=== PATIENT | female | born 1990 | race Caucasian/White ===

== ENCOUNTER 2017-09-26 09:48 | Emergency (ER) | payer MEDICAID ==
[~2017-09-26] VITALS: Ht 152.4 cm; Wt 70.0 kg
[2017-09-26 09:57] VITALS: BP 123/71; PULSE 85; RESP 18; TEMP 97.9; O2SAT 100
--- NOTE | 2017-09-26 10:11 | PD ---
HPI Chief Complaint: Syncope/Near-Syncope Time Seen by Provider: 09:58 Travel History International Travel<30 days: No Contact w/Intl Traveler<30days: No Traveled to known affect area: No History of Present Illness HPI 26-year-old female was brought in by EMS for syncope. Patient states that she did not eat any breakfast or drink fluid this morning. Patient states that she was outside and passed out completely. EMS was called. Patient was brought in for evaluation. Patient denies any headache. Patient denies any neck pain. Patient denies any chest pain or shortness of breath. Patient denies abdominal pain. Patient denies any nausea vomiting diarrhea. Patient denies any focal weakness or numbness of extremity. Patient states that she is not on any routine medication. Patient denies any chance of being . Patient denies any dysuria or frequency. Patient denies any vaginal discharge or bleeding. Patient denies any history of seizure. Patient states that she did not injure herself during the syncopal episode this morning. Patient denies any history of alcohol or drug abuse. PFSH Past Medical History Bipolar Disorder: Yes Diminished Hearing: No Psychiatric: Yes (MENTAL DISABILITY ) Immunizations Current: No Tetanus Vaccination: Unknown Influenza Vaccination: No ?: Not Past Surgical History Surgical History: No Previous Surgery Social History Alcohol Use: No Tobacco Use: No Substance Use: No Allergies-Medications (Allergen,Severity, Reaction): Coded Allergies: Penicillins (Verified Allergy, Unknown, RASHES, 09/26/17) Reported Meds & Prescriptions Reported Meds & Active Scripts Active No Active Prescriptions or Reported Medications Review of Systems General / Constitutional: No: Fever Eyes: No: Visual changes HENT: No: Headaches Cardiovascular: No: Chest Pain or Discomfort Respiratory: No: Shortness of Breath Gastrointestinal: No: Abdominal Pain Genitourinary: No: Dysuria Musculoskeletal: No: Pain Skin: No Rash Neurologic: Positive: Syncope, No: Weakness Psychiatric: No: Depression Endocrine: No: Polydipsia Hematologic/Lymphatic: No: Easy Bruising Physical Exam Narrative GENERAL: Well-nourished, well-developed patient. SKIN: Focused skin assessment warm/dry. HEAD: Normocephalic. EYES: No scleral icterus. No injection or drainage. Pupils 2 mm equal reactive. NECK: Supple, trachea midline. No JVD or lymphadenopathy. CARDIOVASCULAR: Regular rate and rhythm without murmurs, gallops, or rubs. RESPIRATORY: Breath sounds equal bilaterally. No accessory muscle use. GASTROINTESTINAL: Abdomen soft, non-tender, nondistended. MUSCULOSKELETAL: No cyanosis, or edema. BACK: Nontender without obvious deformity. No CVA tenderness. Neurologic exam: Patient's awake alert oriented 3. No obvious focal neurological deficit. Data Data Last Documented VS Vital Signs Date Time Temp Pulse Resp B/P (MAP) Pulse Ox O2 Delivery O2 Flow Rate FiO2 09/26/17 09:57 97.9 85 18 123/71 (88) 100 Orders Orders Electrocardiogram (09/26/17 09:59) Complete Blood Count With Diff (09/26/17 09:59) Basic Metabolic Panel (Bmp) (09/26/17 09:59) Urinalysis - C+S If Indicated (09/26/17 09:59) Thyroid Stimulating Hormone (09/26/17 09:59) Iv Access Insert/Monitor (09/26/17 09:59) Ecg Monitoring (09/26/17 09:59) Oximetry (09/26/17 09:59) Ed Urine Pregnancytest Poc (09/26/17 09:59) Labs Laboratory Tests Test 09/26/17 10:05 09/26/17 10:10 Urine Color YELLOW Urine Turbidity CLEAR Urine pH 6.5 Urine Specific Alexander 1.007 Urine Protein NEG mg/dL Urine Glucose (UA) NEG mg/dL Urine Ketones NEG mg/dL Urine Occult Blood NEG Urine Nitrite NEG Urine Bilirubin NEG Urine Urobilinogen LESS THAN 2.0 MG/DL Urine Leukocyte Esterase NEG Urine RBC LESS THAN 1 /hpf Urine WBC 1 /hpf Urine Bacteria RARE /hpf Microscopic Urinalysis Comment CULT NOT INDICATED White Blood Count 9.2 TH/MM3 Red Blood Count 4.27 MIL/MM3 Hemoglobin 12.4 GM/DL Hematocrit 37.7 % Mean Corpuscular Volume 88.2 FL Mean Corpuscular Hemoglobin 29.1 PG Mean Corpuscular Hemoglobin Concent 33.0 % Red Cell Distribution Width 15.2 % Platelet Count 280 TH/MM3 Mean Platelet Volume 10.7 FL Neutrophils (%) (Auto) 75.0 % Lymphocytes (%) (Auto) 16.5 % Monocytes (%) (Auto) 6.6 % Eosinophils (%) (Auto) 1.5 % Basophils (%) (Auto) 0.4 % Neutrophils # (Auto) 6.9 TH/MM3 Lymphocytes # (Auto) 1.5 TH/MM3 Monocytes # (Auto) 0.6 TH/MM3 Eosinophils # (Auto) 0.1 TH/MM3 Basophils # (Auto) 0.0 TH/MM3 CBC Comment DIFF FINAL Differential Comment Blood Urea Nitrogen 6 MG/DL Creatinine 0.64 MG/DL Random Glucose 91 MG/DL Calcium Level 8.8 MG/DL Sodium Level 141 MEQ/L Potassium Level 3.0 MEQ/L Chloride Level 105 MEQ/L Carbon Dioxide Level 26.2 MEQ/L Anion Gap 10 MEQ/L Estimat Glomerular Filtration Rate 110 ML/MIN Thyroid Stimulating Hormone 3rd Gen 0.143 uIU/ML MDM Medical Decision Making Medical Screen Exam Complete: Yes Emergency Medical Condition: Yes Interpretation(s) 11:47 AM. CBC within normal limit. BMP with potassium 3.0. TSH 0.143. UA is negative. Differential Diagnosis Differential diagnosis including vasovagal reaction, electrolyte imbalance, dehydration, arrhythmia, TIA, CVA Narrative Course 26-year-old female with syncope. Patient did not eat or drink anything this morning. Patient was outside when she passed out. Patient was given fluid and food. KCl 40 mEq by mouth given. Diagnosis Primary Impression: Syncope Qualified Codes: R55 - Syncope and collapse Additional Impression: Hypokalemia Patient Instructions: General Instructions Additional Instructions: Encourage by mouth fluids. Follow-up with personal physician. Take potassium as directed. Med/Other Pt SpecificInfo: Prescription(s) given Scripts Potassium Chloride ER (Potassium Chloride ER) 10 Meq Cap 10 MEQ PO DAILY for Electrolyte Replacement, #5 CAP 0 Refills Prov: Geo Rapp MD 09/26/17 Disposition: 01 DISCHARGE HOME Condition: Stable Geo Rapp MD Sep 26, 2017 10:10
[2017-09-26 11:12] LABS: AUTOMATED NEUTROPHIL # 6.9 TH/MM3 (1.8-7.7); BASOPHIL % 0.4 % (0.0-2.0); EOSINOPHIL # 0.1 TH/MM3 (0-0.4); EOSINOPHIL % 1.5 % (0.0-4.0); HEMATOCRIT 37.7 % (35.0-46.0); HEMO FLAGS DIFF FINAL; LYMPH % 16.5 % (9.0-44.0); LYMPHOCYTE # 1.5 TH/MM3 (1.0-4.8); MEAN CELL VOLUME 88.2 FL (80.0-100.0); MEAN CORPUSCULAR HEMOGLOBIN 29.1 PG (27.0-34.0); MONO % 6.6 % (0.0-8.0); PLATELET COUNT 280 TH/MM3 (150-450); RED BLOOD COUNT 4.27 MIL/MM3 (4.00-5.30); RED CELL DISTRIBUTION WIDTH 15.2 % (11.6-17.2); WHITE BLOOD COUNT 9.2 TH/MM3 (4.0-11.0)
[2017-09-26 11:15] LABS: BACTERIA, URINE RARE /hpf; BLOOD, URINE NEG (NEG); COMMENT (UR) CULT NOT INDICATED; CULTURE IF INDICATED CULT NOT INDICATED; GLUCOSE,URINE NEG (NEG); KETONE, URINE NEG (NEG); NITRITE,URINE NEG (NEG); PH, URINE 6.5 (5.0-8.5); URINE COLOR YELLOW (YELLW/STRAW)
[2017-09-26 11:30] LABS: BICARBONATE 26.2 MEQ/L (21.0-32.0)
[2017-09-26] MEDS ORDERED: POTA10CA PO (11:51)
[2017-09-26] MEDS ORDERED: POTASSIUM CHLORIDE 20 MEQ CONTROLLED RELEASE TAB PO ONE (12:00)
--- NOTE | 2017-09-27 12:14 | EKG ---
Date Performed: 09/26/2017 Time Performed: 10:17:44 PTAGE: 26 years EKG: Sinus rhythm VOLTAGE CRITERIA FOR LVH MODERATE T-WAVE ABNORMALITY, CONSIDER ANTERIOR ISCHEMIA ABNORMAL ECG NO PREVIOUS TRACING DOCTOR: Cleveland Palmer Interpretating Date/Time 09/27/2017 12:09:13
== END 2017-09-26 14:42 | disposition home or self-care (01) ==
LOC: NEPD 09:48
DX: R55 Syncope and collapse (principal); E87.6 Hypokalemia; R94.31 Abnormal electrocardiogram [ECG] [EKG]; Z86.59 Personal history of other mental and behavioral disorders
CPT/HCPCS: 80048; 81001; 84443; 84703; 85025; 93005; 99284